=== PATIENT | male | born 2000 | race American Indian/Alaskan Native ===

== ENCOUNTER 2021-11-25 07:08 | Emergency (ER) | payer BC ==
[2021-11-25 07:18] VITALS: BP 131/86
--- NOTE | 2021-11-25 09:01 | XRay Report ---
RIGHT KNEE 4 VIEW(S) INDICATION / CLINICAL INFORMATION: R knee pain COMPARISON: None available. FINDINGS: BONES / JOINT(S): No acute fracture or subluxation. No significant arthritis. Small suprapatellar lucila nt effusion. SOFT TISSUES: No significant abnormality. ADDITIONAL FINDINGS: None. IMPRESSION: 1. Small joint effusion. Signer Name: Shayy Fong MD Signed: 11/25/2021 8:56 AM Workstation Name: [id number]
--- NOTE | 2021-11-25 09:02 | Emergency Department Report ---
ED Lower Extremity HPI - General Chief Complaint: Extremity Injury, Lower Stated Complaint: KNEE PAIN Time Seen by Provider: 11/25/21 07:47 Source: patient Mode of arrival: Ambulatory Limitations: No Limitations - History of Present Illness Initial Comments: Mr. Garces is a 21-year-old male that comes to the ER with knee pain. He is concerned he has meniscus injury. He is ambulatory but with a limp to triage. He is accompanied by his mother. Patient states that while playing basketball couple days ago he felt a popping sensation. Since then he has had some swelling and pain -: Sudden, days(s) Place: home Severity: mild Severity scale (0 -10): 3 Improves With: nothing Worsens With: movement - Related Data Previous Rx's Medication Instructions Recorded Last Taken Type Ibuprofen [Motrin] 800 mg PO Q8HR PRN #30 tablet 11/25/21 Unknown Rx Allergies Allergy/AdvReac Type Severity Reaction Status Date / Time No Known Allergies Allergy Verified 11/25/21 07:18 ED Review of Systems ROS: Stated complaint: KNEE PAIN Other details as noted in HPI Comment: All other systems reviewed and negative ED Past Medical Hx - Past Medical History Previous Medical History?: No - Surgical History Past Surgical History?: No - Family History Family history: no significant - Social History Smoking Status: Never Smoker Substance Use Type: None - Medications Home Medications: Home Medications Medication Instructions Recorded Confirmed Last Taken Type Ibuprofen [Motrin] 800 mg PO Q8HR PRN #30 tablet 11/25/21 Unknown Rx ED Physical Exam - General Limitations: No Limitations General appearance: alert, in no apparent distress - Head Head exam: Present: atraumatic, normocephalic - Eye Eye exam: Present: normal appearance - ENT ENT exam: Present: mucous membranes moist - Neck Neck exam: Present: normal inspection - Respiratory Respiratory exam: Present: normal lung sounds bilaterally. Absent: respiratory distress - Cardiovascular Cardiovascular Exam: Present: regular rate, normal rhythm. Absent: systolic murmur, diastolic murmur, rubs, gallop - GI/Abdominal GI/Abdominal exam: Present: soft, normal bowel sounds - Rectal Rectal exam: Present: deferred - Extremities Exam Extremities exam: Present: normal inspection - Expanded Lower Extremity Exam Right Upper Leg exam: Present: normal inspection Knee exam: Present: tenderness, swelling, effusion Lower Leg exam: Present: normal inspection - Back Exam Back exam: Present: normal inspection - Neurological Exam Neurological exam: Present: alert, oriented X3 - Psychiatric Psychiatric exam: Present: normal affect, normal mood - Skin Skin exam: Present: warm, dry, intact, normal color. Absent: rash ED Course Vital Signs 11/25/21 07:14 Temperature 97.7 F Pulse Rate 62 Respiratory 18 Rate Blood Pressure 131/86 [Right] O2 Sat by Pulse 99 Oximetry ED Lower Extremity MDM - Radiology Data Radiology results: report reviewed, image reviewed No fracture - Medical Decision Making Vital Signs (72 hours) 11/25/21 07:14 Temperature 97.7 F Pulse Rate 62 Respiratory 18 Rate Blood Pressure 131/86 [Right] O2 Sat by Pulse 99 Oximetry X-ray noted Patient placed in knee immobilizer and on crutches I explained to the patient ligaments and bone disease of the knee. I explained to him that we see nothing abnormal on the x-ray. However, he does have a small effusion. I have explained the importance of patient following up with orthopedics. Patient is neurovascularly intact. He has distal DP and PT pulses. He has full range of motion of his ankle and his hip. Patient being discharged home with discharge plan of care including diet, activity, medications and follow-up. He verbalizes understanding of plan of care - Differential Diagnosis Bony versus ligamentous injury Critical care attestation.: If time is entered above; I have spent that time in minutes in the direct care of this critically ill patient, excluding procedure time. ED Disposition Clinical Impression: Knee pain Qualifiers: Chronicity: acute Laterality: right Qualified Code(s): M25.561 - Pain in right knee Disposition: 01 HOME / SELF CARE / HOMELESS Is pt being admited?: No Does the pt Need Aspirin: No Condition: Stable Instructions: Acute Knee Pain, Adult Additional Instructions: immobilizer and crutches non weight bearing until seen by ortho MD see ortho bart rest/ice/elevate leg over the counter motrin or tylenol for pain Prescriptions: Ibuprofen [Motrin] 800 mg PO Q8HR PRN #30 tablet PRN Reason: Pain, Moderate (4-6) Referrals: LOYDA STEVENS MD [Staff Physician] - 3-5 Days Forms: Work/School Release Form(ED) Time of Disposition: 09:11
== END 2021-11-25 09:48 | disposition home or self-care (01) ==
LOC: ED 07:08 → EDBD 07:08 → ED 09:48
DX: M25.561 Pain in right knee (principal)
CPT/HCPCS: 99283